=== PATIENT | male | born 1980 | race Hispanic/Latino ===

== ENCOUNTER 2016-10-12 07:47 | Day surgery (SDC) | payer SELFPAY ==
[2016-10-12] MEDS ORDERED: Lactated Ringer's 500 ML IV ONE (08:14)
[2016-10-12] MEDS ORDERED: Propofol 10 mg/ml Inj (20 ML) ONE (08:27)
--- NOTE | 2016-10-12 09:38 | CP.SDSHP ---
Same Day Surgery H & P - History Proposed Procedure: EGD/Colonoscopy Pre-Op Diagnosis: GERD, BRBPR - Previous Medical/Surgical History Previous Surgical History: none - Allergies Allergies: Allergies No Known Allergies Allergy (Verified 10/12/16 08:13) - Physical Exam General Appearance: nl Mental Status: Alert & Oriented x3 Neuro: WNL Heart: WNL Lungs: WNL GI: WNL - {Optional Preform as Required} Abdomen: WNL - Impression Impression: GERD/BRBPR Pt. Evaluated Today:Candidate for Anesthesia & Procedure: Yes - Date & Time Date: 10/12/16 Time: 09:37 Short Stay Discharge - Short Stay Discharge Admitting Diagnosis/Reason for Visit: SCREENING Disposition: HOME/ ROUTINE
[2016-10-12 16:12] VITALS: TEMP 97; O2SAT 99
[2016-10-12 16:13] VITALS: BP 120/73; PULSE 73; RESP 16
== END 2016-10-12 12:00 | disposition home or self-care (01) ==
LOC: H.ENDO 07:47
PROVIDERS: ATTEND Internal Medicine
DX: K21.0 Gastro-esophageal reflux disease with esophagitis (principal); D12.2 Benign neoplasm of ascending colon; K64.8 Other hemorrhoids; K29.70 Gastritis, unspecified, without bleeding
CPT/HCPCS: 43239; 45380; 88305; 88313; J2001; J2704; J7120